=== PATIENT | male | born 1945 | race Caucasian/White ===

== ENCOUNTER 2016-12-01 12:04 | Emergency (ER) | payer MEDICARE ==
[~2016-12-01] VITALS: Ht 180.3 cm; Wt 88.0 kg
[~2016-12-01 12:04] MED LIST: ALLOPURINOL300 MG OR; AUGMENTIN875 MG PO; B-12 TR1000 MCG OR; BACTROBAN2 % EX; FISH OIL1000 MG OR; LEVOTHYROXIN25 MC1 OR; LISINOPRIL20 M1 OR; LORTAB 7.5 OR; MEDDOSEPAK OR; POM PO; POM SC; PROSTATE SR OR; RED YEAS1 PO; SLO-NIACIN750 MG OR
[2016-12-01] MEDS ORDERED: OMEPRAZOLE10 MG PO (12:23)
[2016-12-01] MEDS ORDERED: TRAMADOL HYDROC50 MG PO (12:24)
[2016-12-01] MEDS ORDERED: ANDROGEL1.62 % ID (12:26)
[2016-12-01] MEDS ORDERED: FINASTERIDE5 MG PO (12:26)
[2016-12-01] MEDS ORDERED: ALFUZOSIN HCL E10 MG PO (12:27)
[2016-12-01 13:37] LABS: HEMATOCRIT 40.7 % (39.0-50.0); HEMOGLOBIN 13.6 g/dl (14.0-18.0); IMMATURE GRANULOCYTES 0.6 % (0.0-1.0); MEAN CELL VOLUME 82.4 fL CALC (80.0-100.0); MEAN CORPUSCULAR HGB 27.5 pG CALC (26.0-32.0); MEAN CORPUSCULAR HGB CONC 33.4 g/L CALC (32.0-36.0); NEUT# 6.44 thou/uL (1.82-7.42); RED BLOOD COUNT 4.94 mill/uL (4.70-6.10)
[2016-12-01 13:38] LABS: ALBUMIN 4.5 g/dL (3.2-5.0); ALKALINE PHOSPHATASE 60 u/l (38-126); ANION GAP 17 (6-22 (CALC)); BILIRUBIN, TOTAL 0.4 mg/dL (0.0-1.4); BUN 17 mg/dL (8-23); BUN/CREATININE RATIO 20 (12-20 (CALC)); CALCIUM 9.5 mg/dL (8.4-10.2); CARBON DIOXIDE 26 mmol/l (22-30); CHLORIDE 102 mmol/l (95-108); CREATININE 0.9 mg/dL (0.7-1.3); GFR > 60 ML/MIN (>=60 (CALC)); GFR FOR AFR.AMER. > 60 ML/MIN (>=60 (CALC)); GLUCOSE 125 mg/dL (82-115); POTASSIUM 4.3 mmol/l (3.5-5.1); SGOT/AST 45 u/l (19-48); SGPT/ALT 40 u/l (11-66); SODIUM 140 mmol/l (137-146); TOTAL PROTEIN 8.1 g/dL (6.3-8.2)
[2016-12-01 13:49] LABS: MYOGLOBIN 117 ng/mL (0 - 121)
[2016-12-01 15:03] VITALS: BP 155/79
== END 2016-12-01 15:00 | disposition left against medical advice (07) ==
LOC: ED 12:04
PROVIDERS: Emergency Medicine
DX: K08.89 Other specified disorders of teeth and supporting structures (principal); Z91.19 Patient's noncompliance with other medical treatment and regimen; R42 Dizziness and giddiness; I10 Essential (primary) hypertension; R68.84 Jaw pain; R06.02 Shortness of breath; R11.0 Nausea

== ENCOUNTER 2022-03-02 10:21 | Emergency (ER) | payer MEDICARE ==
[~2022-03-02] VITALS: Ht 182.9 cm; Wt 136.0 kg
[~2022-03-02 10:21] MED LIST changes: +ACETAMINOPHEN; +ALFUZOSIN HCL E10 MG PO; +ANDROGEL1.62 % ID; +FINASTERIDE5 MG PO; +MECLIZINE25 MG PO; +NYQUI2 PO; +OMEPRAZOLE10 MG PO; +SIMVASTATIN10 MG PO; +TRAMADOL HYDROC50 MG PO
[2022-03-02] MEDS ORDERED: SIMVASTATIN10 MG PO (10:41)
[2022-03-02] MEDS ORDERED: ALFUZOSIN HCL E10 MG PO (10:41)
[2022-03-02] MEDS ORDERED: FINASTERIDE5 MG PO (10:41)
[2022-03-02] MEDS ORDERED: ALLOPURINOL300 MG PO (10:42)
[2022-03-02] MEDS ORDERED: LEVOTHYROXIN100 MCG PO (10:42)
[2022-03-02] MEDS ORDERED: LISINOPRIL10 MG PO (10:42)
[2022-03-02] MEDS ORDERED: TYLENOL500 MG PO (10:43)
[2022-03-02] MEDS ORDERED: MECLIZINE25 MG PO (10:43)
[2022-03-02] MEDS ORDERED: OMEPRAZOLE DR20 MG (10:43)
[2022-03-02 11:00] LABS: URINE BLOOD DIPSTICK LARGE (NEGATIVE); URINE GLUCOSE - DIPSTICK NEGATIVE (NEGATIVE); URINE KETONE TRACE mg/dL (NEGATIVE); URINE PROTEIN - DIPSTICK 100 mg/dL (NEG-TRACE); URINE SPECIFIC GRAVITY 1.025
[2022-03-02 11:00] LABS: HEMOGLOBIN 13.3 g/dl (14.0-18.0); IMMATURE GRANULOCYTES 0.2 % (0.0-5.0); MEAN CORPUSCULAR HGB 28.9 pG CALC (26.0-32.0); MEAN CORPUSCULAR HGB CONC 32.4 g/dL CAL (32.0-36.0); NEUT# 7.9 thou/uL (1.82-7.42); RED BLOOD COUNT 4.61 mill/uL (4.70-6.10); RED CELL DISTRI WIDTH 14.4 % (11.5-15.5)
[2022-03-02 11:01] LABS: URINE BILIRUBIN - DIPSTICK MODERATE (NEGATIVE); URINE LEUK ESTERASE MODERATE (NEGATIVE); URINE NITRITE - DIPSTICK POSITIVE (Negative)
[2022-03-02 11:02] LABS: URINE BACTERIA MANY hpf; URINE COLOR RED; URINE EPITHELIAL CELLS FEW EPI/hpf (0-FEW); URINE RBC 50-100 RBC/hpf (0-5); URINE WBC 50-100 WBC/hpf (0-5)
[2022-03-02 11:06] LABS: MEAN CELL VOLUME 88.9 fL CALC (80.0-100.0)
[2022-03-02 11:13] LABS: ALBUMIN 4.1 g/dL (3.2-5.0); ALKALINE PHOSPHATASE 46 u/l (38-126); ANION GAP 13 (6-22 (CALC)); BUN 16 mg/dL (8-23); BUN/CREATININE RATIO 14 (12-20 (CALC)); CARBON DIOXIDE 25 mmol/l (22-30); CHLORIDE 103 mmol/l (95-108); CREATININE 1.2 mg/dL (0.7-1.3); GFR FOR AFR.AMER. > 60 ML/MIN (>=60 (CALC)); GFR OTHER RACES 59 ML/MIN (>=60 (CALC)); POTASSIUM 3.7 mmol/l (3.5-5.1); SGOT/AST 46 u/l (19-48); SODIUM 138 mmol/l (137-146); TOTAL PROTEIN 7.4 g/dL (6.3-8.2)
[2022-03-02] MEDS ORDERED: OMNI-PAC300 MG PO (11:25)
[2022-03-02 11:35] LABS: BILIRUBIN, TOTAL 0.7 mg/dL (0.0-1.4)
[2022-03-02 12:35] VITALS: BP 134/80
== END 2022-03-02 12:48 | disposition home or self-care (01) ==
LOC: ED 10:21
PROVIDERS: Family Medicine
DX: N39.0 Urinary tract infection, site not specified (principal); B96.4 Proteus (mirabilis) (morganii) as the cause of diseases classified elsewhere; E11.9 Type 2 diabetes mellitus without complications; I10 Essential (primary) hypertension